=== PATIENT | male | born 1980 | race Caucasian/White ===

== ENCOUNTER 2018-10-17 11:10 | Day surgery (SDC) | payer OTHER ==
[2018-10-17] MEDS ORDERED: CARB100ER PO (12:18)
[2018-10-17] MEDS ORDERED: Flonase 0.05% N16 GM (12:19)
[2018-10-17] MEDS ORDERED: NAPR220 PO (12:19)
[2018-10-17] MEDS ORDERED: CEPH125SU PO (12:33)
--- NOTE | 2018-10-17 14:55 | NUR ---
10/17/18 1455 Jazmyn Ramírez PATIENT SLOW TO WAKE, TOOK OUT IV WHEN PT WAS FIRST WAKING TO KEEP HIM FROM PULLING IT OUT. SUCTIONED OF SOME BLOOD THAT WAS IN HIS MOUTH BUT ABLE TO MAINTAIN O2 SATS AND VITALS STABLE
== END 2018-10-17 15:30 | disposition home or self-care (01) ==
LOC: ORSCSDS 11:10
PROVIDERS: Dentist Pediatric Dentistry
PROC: 0CRW0J1 Replacement of Upper Tooth, Multiple, with Synthetic Substitute, Open Approach (ICD-10-PCS; principal; 2018-10-17 12:30)
PROC: 0CRX0J0 Replacement of Lower Tooth, Single, with Synthetic Substitute, Open Approach (ICD-10-PCS; principal; 2018-10-17 12:30)
PROC: 0CRX0J1 Replacement of Lower Tooth, Multiple, with Synthetic Substitute, Open Approach (ICD-10-PCS; principal; 2018-10-17 12:30)
DX: K02.9 Dental caries, unspecified (principal); K05.30 Chronic periodontitis, unspecified; F84.0 Autistic disorder; F72 Severe intellectual disabilities; Q99.8 Other specified chromosome abnormalities; Z79.899 Other long term (current) drug therapy
CPT/HCPCS: J1100; J1885; J2405; J2704; J3010; J7120